=== PATIENT | female | born 1950 | race Caucasian/White ===

== ENCOUNTER 2019-03-31 23:48 | Emergency (ER) | payer MEDICARE, MEDICAID ==
[~2019-03-31] VITALS: Ht 167.6 cm; Wt 122.7 kg
[~2019-03-31 23:48] MED LIST: ASPI-1265 PO; ATOR20TA66 PO; CRAN200C PO; CYCL-1 PO; DIME50TA90 PO; HCTZ25T PO; LORA10TA65 PO; METF500T PO; MULT-785 PO; PANT-47 PO
[2019-04-01] MEDS ORDERED: metoprolol tartrate 50mg tablet PO ONE (00:20)
[2019-04-01 01:24] LABS: CLARITY,URINE CLEAR (Clear); COLOR,URINE YELLOW (Yellow); GLUCOSE, URINE NEGATIVE (Neg); KETONES,URINE NEGATIVE (Neg); LEUKOCYTE ESTERASE ,URINE NEGATIVE (Neg); NITRITES, URINE NEGATIVE (Neg); OCCULT BLOOD,URINE NEGATIVE (Neg); PROTEIN,URINE NEGATIVE (Neg); UROBILINOGEN,URINE 0.2 E.U/dL (0.2-1.0)
[2019-04-01 01:28] LABS: UA COLLECTION TYPE CLN CATCH MIDSTREAM
[2019-04-01] MEDS ORDERED: LISI-600 PO (01:32)
[2019-04-01 01:42] VITALS: BP 168/84
== END 2019-04-01 01:44 | disposition home or self-care (01) ==
LOC: ER 23:48
DX: I10 Essential (primary) hypertension (principal); E11.42 Type 2 diabetes mellitus with diabetic polyneuropathy; E78.00 Pure hypercholesterolemia, unspecified; K21.9 Gastro-esophageal reflux disease without esophagitis; G89.29 Other chronic pain; F41.9 Anxiety disorder, unspecified; F32.9 Major depressive disorder, single episode, unspecified; Z98.890 Other specified postprocedural states; Z60.2 Problems related to living alone; Z56.0 Unemployment, unspecified; Z77.22 Contact with and (suspected) exposure to environmental tobacco smoke (acute) (chronic); Z79.82 Long term (current) use of aspirin; Z79.84 Long term (current) use of oral hypoglycemic drugs
CPT/HCPCS: 81003; 93005; 99284

== ENCOUNTER 2022-04-21 12:28 | Emergency (ER) | payer MEDICARE, MEDICAID ==
[~2022-04-21] VITALS: Ht 165.1 cm; Wt 122.3 kg
[~2022-04-21 12:28] MED LIST changes: -HCTZ25T PO; +HYDR25TA5 PO
[2022-04-21 13:43] LABS: CLARITY,URINE SLIGHTLY CLOUDY (Clear); COLOR,URINE YELLOW (Yellow); GLUCOSE, URINE NEGATIVE (Neg); KETONES,URINE NEGATIVE (Neg); LEUKOCYTE ESTERASE ,URINE SMALL (Neg); NITRITES, URINE POSITIVE (Neg); OCCULT BLOOD,URINE NEGATIVE (Neg); PROTEIN,URINE NEGATIVE (Neg); UROBILINOGEN,URINE 0.2 E.U/dL (0.2-1.0)
[2022-04-21 13:45] LABS: UA COLLECTION TYPE CLN CATCH MIDSTREAM
[2022-04-21 13:49] LABS: BACTERIA,URINE 3+ /HPF (Neg); SQUAMOUS EPITHELIAL CELL,UR FEW /LPF (FEW); TRANSITIONAL EPI CELLS,URINE MODERATE /HPF
[2022-04-21 13:50] LABS: RBC,URINE 0-2 /HPF (0-2); WBC CLUMPS,URINE MANY /HPF (NEGATIVE)
[2022-04-21 14:54] VITALS: BP 152/82
[2022-04-21] MEDS ORDERED: CEPH-585 PO (15:44)
[2022-04-21] MEDS ORDERED: ketorolac trometh inj. 60 MG/2 ML VIAL IM ONE (15:45)
--- NOTE | 2022-04-21 16:00 | NUR ---
Patient evaluated, treated and discharged by provider prior to nurse assesment. Okay to discharge per provider.
== END 2022-04-21 16:01 | disposition home or self-care (01) ==
LOC: ER 12:29
DX: N39.0 Urinary tract infection, site not specified (principal); M54.50 Low back pain, unspecified; E78.00 Pure hypercholesterolemia, unspecified; I10 Essential (primary) hypertension; K21.9 Gastro-esophageal reflux disease without esophagitis; E11.9 Type 2 diabetes mellitus without complications; G89.29 Other chronic pain; Z56.0 Unemployment, unspecified; Z88.1 Allergy status to other antibiotic agents
CPT/HCPCS: 81001; 87077; 87088; 87186; 96372; 99283; J1885

== ENCOUNTER 2023-08-06 11:26 | Emergency (ER) | payer MEDICARE, MEDICAID ==
[~2023-08-06] VITALS: Ht 165.1 cm; Wt 107.0 kg
[2023-08-06 12:01] VITALS: BP 158/75; PULSE 81; RESP 16; TEMP 98.4; O2SAT 95
== END 2023-08-06 12:02 | disposition home or self-care (01) ==
LOC: ER 11:28
DX: H11.31 Conjunctival hemorrhage, right eye (principal); G62.9 Polyneuropathy, unspecified; E78.00 Pure hypercholesterolemia, unspecified; K21.9 Gastro-esophageal reflux disease without esophagitis; E11.9 Type 2 diabetes mellitus without complications; G89.29 Other chronic pain; F41.9 Anxiety disorder, unspecified; F32.A Depression, unspecified; I11.0 Hypertensive heart disease with heart failure; I50.9 Heart failure, unspecified; Z60.2 Problems related to living alone; Z56.0 Unemployment, unspecified; Z88.1 Allergy status to other antibiotic agents; Z79.82 Long term (current) use of aspirin; Z79.899 Other long term (current) drug therapy; Z79.84 Long term (current) use of oral hypoglycemic drugs
CPT/HCPCS: 99282